=== PATIENT | female | born 1980 | race Caucasian/White ===

== ENCOUNTER → 2022-05-07 17:30 | Outpatient (CLI) | payer SELFPAY ==
--- NOTE | 2022-05-07 18:01 | DI.RAD.S_ITS ---
PROCEDURE: XR HAND RT MIN 3V INDICATIONS: Dog bite TECHNIQUE: 3 views of the hand(s) acquired. COMPARISON: [facility], CR, XR HAND LT MIN 3V, 05/07/2022, 18:02. FINDINGS: Bones: No fractures or dislocations. Carpal bones are normally aligned. No suspicious bony lesions. Soft tissues: No suspicious soft tissue calcifications. IMPRESSION: Unremarkable right hand radiographs. No radiopaque foreign body Approved by: Aakash Gonzalez M.D. on 05/07/2022 at 17:49
--- NOTE | 2022-05-07 18:01 | DI.RAD.S_ITS ---
PROCEDURE: XR HAND LT MIN 3V INDICATIONS: Dog bite TECHNIQUE: 3 views of the hand(s) acquired. COMPARISON: None. FINDINGS: Bones: No fractures or dislocations. Carpal bones are normally aligned. No suspicious bony lesions. Soft tissues: No suspicious soft tissue calcifications. IMPRESSION: No acute osseous abnormality. No radiopaque foreign body. Dictated by: Aguila Govea M.D. on 05/07/2022 at 20:00 Approved by: Aguila Govea M.D. on 05/07/2022 at 20:01
== END ==
PROVIDERS: Referring Provider Student in an Organized Health Care Education/Training Program; Visit Provider Student in an Organized Health Care Education/Training Program
DX: S61.452A Open bite of left hand, initial encounter (principal); S61.451A Open bite of right hand, initial encounter; W54.0XXA Bitten by dog, initial encounter
CPT/HCPCS: 73130